=== PATIENT | female | born 1970 | race Caucasian/White ===

== ENCOUNTER 2017-01-11 00:18 | Emergency (ER) | payer OTHER ==
[~2017-01-11] VITALS: Ht 160 cm; Wt 59.0 kg
[~2017-01-11 00:18] MED LIST: ASPIRIN EC81 MG PO; LORAZEPAM1 MG PO; METOPROLOL SUCC25 MG PO; TYLENOL325 MG PO; ZOLOFT50 MG PO
[2017-01-11] MEDS ORDERED: ALPRAZOLAM1 MG PO (00:38)
[2017-01-11] MEDS ORDERED: METOPROLOL SUCC25 MG PO (00:38)
[2017-01-11] MEDS ORDERED: CYCLOBENZAPRINE10 MG PO (00:58)
[2017-01-11] MEDS ORDERED: KEFLEX500 MG PO (00:58)
== END 2017-01-11 01:23 | disposition home or self-care (01) ==
LOC: ED 00:18
DX: H66.93 Otitis media, unspecified, bilateral (principal); G44.209 Tension-type headache, unspecified, not intractable; F41.9 Anxiety disorder, unspecified; I10 Essential (primary) hypertension; F17.200 Nicotine dependence, unspecified, uncomplicated; Z79.899 Other long term (current) drug therapy
CPT/HCPCS: 99283

== ENCOUNTER 2018-01-22 09:00 | Day surgery (SDC) | payer OTHER ==
[~2018-01-22] VITALS: Ht 160 cm; Wt 59.0 kg
--- NOTE | ~2018-01-22 | OR ---
[facility] [address], [place] [address] Draft DATE OF OPERATION: 01/22/2018 SURGEON: Amelia Murray DO PREOPERATIVE DIAGNOSES: 1. Perimenopausal abnormal uterine bleeding. 2. Thickened endometrium. POSTOPERATIVE DIAGNOSES: 1. Perimenopausal abnormal uterine bleeding. 2. Thickened endometrium. PROCEDURE PERFORMED: Hysteroscopy, dilation and curettage. ANESTHESIA: MAC. ESTIMATED BLOOD LOSS: 5 mL. SPECIMENS: Endometrial curettings. COMPLICATIONS: None. FINDINGS: Normal external genitalia and cervix. Normal endocervical canal. The uterine cavity is normal with some thickened endometrium without polyps or fibroids noted. INDICATIONS: Ms. Locke is a pleasant 47-year-old female, who presents with abnormal uterine bleeding. An ultrasound was performed that demonstrated a thickened endometrium and possibly intrauterine lesion consistent with polyp. The patient was consented for hysteroscopy, D and C. Benefits and alternatives were discussed in detail with the patient. The patient understands and wished to proceed with the procedure. TECHNIQUE: The patient was taken to the operating room where a time-out was performed to confirm PATIENT NAME: ALEXIS LOCKE OPERATIVE REPORT DATE OF : 66 REPORT #: [id number] PHYSICIAN: AMELIA MURRAY DO PCP: JUAN A CRISOSTOMO DO REPORT IS CONFIDENTIAL AND NOT TO BE RELEASED WITHOUT AUTHORIZATION [facility] [address] [place] [id number] Draft correct patient and correct procedure. MAC anesthesia was adequately established. The patient was then prepped and draped in dorsal lithotomy position with her feet in Yellofin stirrups. ICPs were on and running. No preop antibiotics were indicated per skip protocol. The bladder was drained and a weighted speculum was placed in the vagina. The anterior lip of the cervix was grasped with an Allis clamp. The cervical os was gently dilated using Hegar dilators up to #7 and operative hysteroscope was placed into the os and advanced under direct visualization into the uterine cavity. Normal uterine cavity was appreciated with bilateral tubal ostia. Thickened heterogeneous endometrium was noted. A MyoSure Lite device was selected and circumferential curettage was performed without difficulty. Minimal bleeding was noted. The hysteroscope was withdrawn and the single-tooth tenaculum was removed. Hemostasis was appreciated. The patient was then taken to PACU in stable condition. Sponge, needle, and instrument count was correct x2 at the end of the procedure. Amelia Murray DO JELAINE/SADI /[id number] Copies: ~ PATIENT NAME: ALEXIS LOCKE OPERATIVE REPORT DATE OF : 66 REPORT #: [id number] PHYSICIAN: AMELIA MURRAY DO PCP: JUAN A CRISOSTOMO DO REPORT IS CONFIDENTIAL AND NOT TO BE RELEASED WITHOUT AUTHORIZATION
[~2018-01-22 09:00] MED LIST changes: +ALPRAZOLAM1 MG PO; +CYCLOBENZAPRINE10 MG PO; +KEFLEX500 MG PO
--- NOTE | 2018-01-22 12:40 | NUR ---
01/22/18 1240 Jenelle Rosenberg 1233 PT ARRIVED TO PACU ON 6L VIA MASK. PT REACTIVE TO VERBAL STIMULI. PT DENIES NAUSEA AND PAIN. PT REORINETED TO PACU. 1237 PT DROWSY AND O2 MASK REMOVED. PT ENCOURAGED TO DEEP BREATH.
== END 2018-01-22 13:30 | disposition home or self-care (01) ==
LOC: DS 09:00 → OPS 09:00 → DS 11:30 → OPS 11:30
PROVIDERS: Obstetrics & Gynecology
PROC: 0UDB8ZX Extraction of Endometrium, Via Natural or Artificial Opening Endoscopic, Diagnostic (ICD-10-PCS; principal; 2018-01-22 11:30)
DX: N93.9 Abnormal uterine and vaginal bleeding, unspecified (principal); N95.1 Menopausal and female climacteric states; R93.8 Abnormal findings on diagnostic imaging of other specified body structures; F41.9 Anxiety disorder, unspecified; F32.9 Major depressive disorder, single episode, unspecified; J45.909 Unspecified asthma, uncomplicated; E03.9 Hypothyroidism, unspecified; F17.210 Nicotine dependence, cigarettes, uncomplicated; Z86.39 Personal history of other endocrine, nutritional and metabolic disease; Z79.899 Other long term (current) drug therapy
CPT/HCPCS: 00952; 88305; J1885; J2250; J2405; J2704; J3010; J7120

== ENCOUNTER 2025-04-28 10:02 | Emergency (ER) | payer OTHER ==
[~2025-04-28] VITALS: Ht 160 cm; Wt 59.6 kg
[~2025-04-28 10:02] MED LIST changes: +ACETAMINOPHEN325 M1 PO; +HYDROCODON-ACE1 EA10 PO; +LISINOPRIL10 MG PO; +MOTRIN IB200 MG NG; +MOTRIN IB200 MG PO; +NICOTINE PATCH1 EACH TD; +TRAZODONE HCL50 MG PO
[2025-04-28] MEDS ORDERED: METOPROLOL SUCC25 MG PO (10:14)
[2025-04-28] MEDS ORDERED: IBUPROFEN 600 MG TAB PO ONE (10:30)
[2025-04-28 10:46] VITALS: BP 104/78
== END 2025-04-28 10:59 | disposition home or self-care (01) ==
LOC: ED 10:02
DX: L89.891 Pressure ulcer of other site, stage 1 (principal); F17.200 Nicotine dependence, unspecified, uncomplicated; I10 Essential (primary) hypertension; Z79.899 Other long term (current) drug therapy
CPT/HCPCS: 73630; 99283; A9270